=== PATIENT | female | born 1965 | race Caucasian/White ===

== ENCOUNTER 2018-11-08 11:13 | Emergency (ER) | payer MEDICAID, OTHER, SELFPAY ==
[~2018-11-08] VITALS: Ht 172.7 cm; Wt 83.0 kg
--- NOTE | 2018-11-08 11:54 | NUR ---
ice pack to rt foot for c/o 5th digit pain
[2018-11-08] MEDS ORDERED: ASPIRIN 81 MG TABLET CHEW PO ONE (12:00)
[2018-11-08] MEDS ORDERED: ASPIRIN 81 MG TABLET CHEW ONE (12:06)
[2018-11-08 12:22] VITALS: BP 122/60
[2018-11-08 12:22] LABS: BASOPHILS # (AUTO) 0.08 x10^3/uL (0-0.1); BASOPHILS % (AUTO) 1 % (0-1); EOSINOPHILS # (AUTO) 0.29 x10^3/uL (0-0.4); EOSINOPHILS % (AUTO) 4 % (1-7); LYMPHOCYTES # (AUTO) 2.97 x10^3/uL (1-3.4); LYMPHOCYTES % (AUTO) 39 % (22-44); MD NO; MEAN CORPUSCULAR HEMOGLOBIN 29.6 pg (27.0-34.8); MEAN CORPUSCULAR HGB CONC 33.5 g/dL (32.4-35.8); MEAN CORPUSCULAR VOLUME 88.5 fL (80-100); MEAN PLATELET VOLUME 8.6 fL (7.4-10.4); MONOCYTES # (AUTO) 0.55 x10^3/uL (0.2-0.8); MONOCYTES % (AUTO) 7 % (2-9); NEUTROPHILS # (AUTO) 3.78 x10^3/uL (1.8-6.8); NEUTROPHILS % (AUTO) 49 % (42-75); PLATELET COUNT 358 x10^3/uL (130-400); RED CELL DISTRIBUTION WIDTH 12.5 % (9.6-15.2)
[2018-11-08] MEDS ORDERED: DOCU-131 PO (12:22)
[2018-11-08] MEDS ORDERED: IPRA4AER INH (12:22)
[2018-11-08] MEDS ORDERED: PARO20TA98 PO (12:22)
[2018-11-08] MEDS ORDERED: HYDR25CA PO (12:22)
[2018-11-08] MEDS ORDERED: OMEG1CAP34 PO (12:22)
[2018-11-08] MEDS ORDERED: QUET400T4 PO (12:22)
[2018-11-08] MEDS ORDERED: PANT20TA3 PO (12:22)
[2018-11-08] MEDS ORDERED: BUDE10.22 INH (12:22)
[2018-11-08 12:35] LABS: ALBUMIN 4.2 g/dL (3.4-5.0); ANION GAP 7 mmol/L (5-15); CHLORIDE 107 mmol/L (98-107)
[2018-11-08 12:41] LABS: ALANINE AMINOTRANSFERASE 31 U/L (12-78); ALKALINE PHOSPHATASE 91 U/L (45-117); BILIRUBIN,TOTAL 0.4 mg/dL (0.2-1.0); CREATININE 0.89 mg/dL (0.55-1.02); TOTAL PROTEIN 7.5 g/dL (6.4-8.2); TROPONIN I < 0.015 ng/mL (0.000-0.045)
--- NOTE | 2018-11-08 13:00 | NUR ---
REPORT RECEIVED FROM LU SEGUNDO, ASSUMING CARE OF PT AT THIS TIME
== END 2018-11-08 13:19 | disposition home or self-care (01) ==
LOC: ED 12:33
DX: S90.121A Contusion of right lesser toe(s) without damage to nail, initial encounter (principal); R07.89 Other chest pain; I25.2 Old myocardial infarction; Z87.891 Personal history of nicotine dependence; X58.XXXA Exposure to other specified factors, initial encounter; Y93.89 Activity, other specified; Y92.89 Other specified places as the place of occurrence of the external cause; Y99.8 Other external cause status
CPT/HCPCS: 36415; 71046; 80053; 84484; 85025; 93005; 99284

== ENCOUNTER 2019-08-24 11:18 | Emergency (ER) | payer MEDICAID ==
[~2019-08-24] VITALS: Ht 172.7 cm; Wt 84.1 kg
[~2019-08-24 11:18] MED LIST: BUDE10.22 INH; DOCU-131 PO; HYDR25CA PO; IPRA4AER INH; OMEG1CAP34 PO; PANT20TA3 PO; PARO20TA98 PO; QUET400T4 PO
--- NOTE | 2019-08-24 11:58 | NUR ---
PT WALKED BACK TO ROOM
[2019-08-24 12:29] LABS: ALANINE AMINOTRANSFERASE 56 U/L (12-78); ALBUMIN 4.2 g/dL (3.4-5.0); ANION GAP 8 mmol/L (5-15); CALCIUM 9.3 mg/dL (8.5-10.1); CHLORIDE 108 mmol/L (98-107); CREATININE 0.95 mg/dL (0.55-1.02)
[2019-08-24 12:31] LABS: ALKALINE PHOSPHATASE 107 U/L (45-117); BILIRUBIN,TOTAL 0.5 mg/dL (0.2-1.0)
[2019-08-24 12:32] LABS: BASOPHILS # (AUTO) 0.06 x10^3/uL (0-0.1); BASOPHILS % (AUTO) 1 % (0-1); EOSINOPHILS # (AUTO) 0.16 x10^3/uL (0-0.4); EOSINOPHILS % (AUTO) 2 % (1-7); LYMPHOCYTES # (AUTO) 2.64 x10^3/uL (1-3.4); LYMPHOCYTES % (AUTO) 35 % (22-44); MD NO; MEAN CORPUSCULAR HEMOGLOBIN 29.7 pg (27.0-34.8); MEAN CORPUSCULAR HGB CONC 34.4 g/dL (32.4-35.8); MEAN CORPUSCULAR VOLUME 86.3 fL (80-100); MEAN PLATELET VOLUME 9.3 fL (7.4-10.4); MONOCYTES # (AUTO) 0.57 x10^3/uL (0.2-0.8); MONOCYTES % (AUTO) 7 % (2-9); NEUTROPHILS % (AUTO) 55 % (42-75); PLATELET COUNT 361 x10^3/uL (130-400); RED BLOOD COUNT 5.09 x10^6/uL (3.82-5.3); RED CELL DISTRIBUTION WIDTH 12.7 % (9.6-15.2)
[2019-08-24] MEDS ORDERED: MAALOX/HYOSCYAMINE/LIDOCAINE 45 ML BTL ONE (12:43)
--- NOTE | 2019-08-24 12:56 | NUR ---
pt able to provide urine sample with assist of to bathroom. pt tearful on return to room, stated it hurts so bad when she voids. pt medicated with ordered med. pt on vitals monitors. will continue to monitor.
[2019-08-24] MEDS ORDERED: MAALOX/HYOSCYAMINE/LIDOCAINE 45 ML BTL PO ONE (13:00)
--- NOTE | 2019-08-24 13:35 | NUR ---
BREAK RN NOTE: PT REC'D MEDS BY PRIMARY RN PT IS RESTING
[2019-08-24 13:57] LABS: MICROSCOPIC INDICATED
[2019-08-24 13:58] LABS: CULTURE INDICATED? YES
[2019-08-24 14:22] VITALS: BP 128/71
== END 2019-08-24 15:09 | disposition home or self-care (01) ==
LOC: ED 14:56
DX: R10.13 Epigastric pain (principal); I25.2 Old myocardial infarction; R94.31 Abnormal electrocardiogram [ECG] [EKG]
CPT/HCPCS: 36415; 74022; 80053; 81001; 83690; 85025; 87086; 93005; 99285

== ENCOUNTER 2020-04-18 09:25 | Emergency (ER) | payer MEDICAID ==
[~2020-04-18] VITALS: Ht 172.7 cm; Wt 84.8 kg
[~2020-04-18 09:25] MED LIST changes: -PANT20TA3 PO; +PANT20TA4 PO
[2020-04-18 09:26] VITALS: BP 141/118
[2020-04-18] MEDS ORDERED: IBUPROFEN 600 MG TABLET ONE (11:45)
[2020-04-18] MEDS ORDERED: IBUPROFEN 600 MG TABLET PO ONE (12:00)
== END 2020-04-18 12:17 | disposition home or self-care (01) ==
LOC: ED 11:30
DX: S63.521A Sprain of radiocarpal joint of right wrist, initial encounter (principal); S60.211A Contusion of right wrist, initial encounter; M79.89 Other specified soft tissue disorders; Z87.891 Personal history of nicotine dependence; X50.1XXA Overexertion from prolonged static or awkward postures, initial encounter; Y93.89 Activity, other specified; Y92.098 Other place in other non-institutional residence as the place of occurrence of the external cause; Y99.8 Other external cause status
CPT/HCPCS: 29125; 99283

== ENCOUNTER 2020-11-24 20:23 | Emergency (ER) | payer MEDICAID ==
[~2020-11-24] VITALS: Ht 172.7 cm; Wt 72.6 kg
[2020-11-24 20:32] VITALS: BP 146/92
[2020-11-24 21:35] LABS: BASOPHILS % (AUTO) 1 % (0-1); EOSINOPHILS % (AUTO) 3 % (1-7); LYMPHOCYTES % (AUTO) 39 % (22-44); MEAN CORPUSCULAR HEMOGLOBIN 29.5 pg (27.0-34.8); MEAN CORPUSCULAR HGB CONC 34.9 g/dL (32.4-35.8); MEAN PLATELET VOLUME 8.8 fL (7.4-10.4); MONOCYTES % (AUTO) 8 % (2-9); NEUTROPHILS % (AUTO) 49 % (42-75); PLATELET COUNT 345 x10^3/uL (130-400); RED BLOOD COUNT 5.16 x10^6/uL (3.82-5.3); RED CELL DISTRIBUTION WIDTH 13.4 % (9.6-15.2)
[2020-11-24 21:41] LABS: ALBUMIN 4.3 g/dL (3.4-5.0); ANION GAP 8 mmol/L (5-15); CALCIUM 9.5 mg/dL (8.5-10.1); CHLORIDE 106 mmol/L (98-107)
[2020-11-24 21:44] LABS: ALANINE AMINOTRANSFERASE 27 U/L (12-78); ALKALINE PHOSPHATASE 78 U/L (45-117); BILIRUBIN,TOTAL 0.8 mg/dL (0.2-1.0); CREATININE 0.77 mg/dL (0.55-1.02)
--- NOTE | 2020-11-24 22:50 | NUR ---
Pt and yelling in lobby and ER staff re: wait and other people being called before her. Pt and were informed on arrival and intermittently re: the wait time today and that the ERP/PA-c has ordered prelim tests. began swearing at this nurse, pt screamed in my face. Security on stand by.
--- NOTE | 2020-11-24 23:08 | NUR ---
PT CALLED FOR ROOM. NA X 1
--- NOTE | 2020-11-24 23:22 | NUR ---
PT CALLED FOR ROOM AGAIN. NA X 2
--- NOTE | 2020-11-24 23:38 | NUR ---
PT NOT IN LOBBY WHEN CALLED FOR A ROOM X 3
== END 2020-11-24 23:41 | disposition left against medical advice (07) ==
LOC: ED 20:45
DX: R10.13 Epigastric pain (principal)
CPT/HCPCS: 36415; 80053; 83690; 85025; 99283